=== PATIENT | female | born 1975 | race Caucasian/White ===

== ENCOUNTER → 2024-04-08 09:01 | Outpatient (REF) | payer BC, SELFPAY | LOC: WDC 09:01 | PROVIDERS: ATTENDING PHYSICIAN Surgery; FAMILY PHYSICIAN Family Medicine | DX: R92.2 Inconclusive mammogram (principal) | CPT/HCPCS: 76641 ==

== ENCOUNTER → 2024-04-10 06:25 | Outpatient (REF) | payer BC, SELFPAY | LOC: WDC 06:25 | PROVIDERS: ATTENDING PHYSICIAN Surgery | DX: N63.10 Unspecified lump in the right breast, unspecified quadrant (principal); N63.12 Unspecified lump in the right breast, upper inner quadrant | CPT/HCPCS: 88305; 19083; 77065; A4648 ==

== ENCOUNTER → 2024-07-09 08:59 | Outpatient (REF) | payer BC, SELFPAY | LOC: WDC 08:59 | PROVIDERS: ATTENDING PHYSICIAN Surgery; FAMILY PHYSICIAN Family Medicine | DX: Z12.31 Encounter for screening mammogram for malignant neoplasm of breast (principal) | CPT/HCPCS: 77063; 77067 ==

== ENCOUNTER 2024-12-23 06:25 | Day surgery (SDC) | payer BC, SELFPAY | END 2024-12-23 11:05 | disposition home or self-care (01) | LOC: GI 06:25 | PROVIDERS: ATTENDING PHYSICIAN Surgery; FAMILY PHYSICIAN Family Medicine | DX: Z12.11 Encounter for screening for malignant neoplasm of colon (principal); Z83.719 Family history of colon polyps, unspecified | CPT/HCPCS: G0105 ==

== ENCOUNTER → 2024-12-25 08:53 | Outpatient (REF) | payer BC, SELFPAY | LOC: WDC 08:53 | PROVIDERS: ATTENDING PHYSICIAN Nurse Practitioner Adult Health; FAMILY PHYSICIAN Family Medicine | DX: R92.2 Inconclusive mammogram (principal); Z85.3 Personal history of malignant neoplasm of breast; C50.412 Malignant neoplasm of upper-outer quadrant of left female breast | CPT/HCPCS: 76641 ==

== ENCOUNTER → 2025-01-21 09:25 | Outpatient (REF) | payer BC, SELFPAY | LOC: RCS 09:25 | PROVIDERS: ATTENDING PHYSICIAN Internal Medicine Cardiovascular Disease; FAMILY PHYSICIAN Family Medicine | DX: I34.0 Nonrheumatic mitral (valve) insufficiency (principal) | CPT/HCPCS: 93306 ==

== ENCOUNTER → 2025-07-13 08:44 | Outpatient (REF) | payer BC, SELFPAY | LOC: HWWDC 08:44 | PROVIDERS: ATTENDING PHYSICIAN Family Medicine Geriatric Medicine; FAMILY PHYSICIAN Family Medicine; OTHER PHYSICIAN Surgery; REFERRING PHYSICIAN Internal Medicine Hematology & Oncology | DX: Z12.31 Encounter for screening mammogram for malignant neoplasm of breast (principal) | CPT/HCPCS: 77063; 77067 ==

== ENCOUNTER → 2025-09-28 12:59 | Outpatient (REF) | payer BC, SELFPAY | LOC: RAD 12:59 | PROVIDERS: ATTENDING PHYSICIAN Student in an Organized Health Care Education/Training Program; FAMILY PHYSICIAN Family Medicine | DX: I73.00 Raynaud's syndrome without gangrene (principal); M34.9 Systemic sclerosis, unspecified; R06.09 Other forms of dyspnea; M72.0 Palmar fascial fibromatosis [Dupuytren]; M79.642 Pain in left hand; Z82.69 Family history of other diseases of the musculoskeletal system and connective tissue; H93.13 Tinnitus, bilateral | CPT/HCPCS: 71250; 73120 ==

== ENCOUNTER → 2025-10-12 07:01 | Outpatient (REF) | payer BC, SELFPAY | LOC: RSP 07:01 | PROVIDERS: ATTENDING PHYSICIAN Student in an Organized Health Care Education/Training Program; FAMILY PHYSICIAN Family Medicine | DX: I73.00 Raynaud's syndrome without gangrene (principal); H93.13 Tinnitus, bilateral; M34.9 Systemic sclerosis, unspecified; M72.2 Plantar fascial fibromatosis; M79.641 Pain in right hand; M79.642 Pain in left hand; R06.09 Other forms of dyspnea; Z82.69 Family history of other diseases of the musculoskeletal system and connective tissue | CPT/HCPCS: 88738; 94010; 94727; 94729 ==